=== PATIENT | female | born 1955 | race African-American/Black ===

== ENCOUNTER 2020-05-09 11:53 | Emergency (ER) | payer MEDICARE, SELFPAY ==
--- NOTE | ~2020-05-09 | XR_ITS ---
EXAMINATION: XR knee RT min 4V EXAM DATE: 05/09/2020 12:52 INDICATION: Fall 6 months ago, generalized right knee pain. TECHNIQUE: Right knee frontal, crosstable lateral, orthogonal oblique projections for interpretation . There is no prior study for comparison. FINDINGS: No evidence osteochondral defect or joint body in the right knee joint. There is moderate patellofemoral and medial tibial femoral compartment primary osteoarthritis. There are no acute frac tures or dislocations identified. There is no subcutaneous gas. Trace right knee joint effusion. T here are no radiopaque foreign bodies. IMPRESSION: Moderate right knee osteoarthritis. Reviewed, dictated and finalized at location [facility]
--- NOTE | 2020-05-09 12:11 | ED.GENADULT ---
HPI - General Adult General Chief complaint: Extremity Injury, Lower Stated complaint: Right Leg Pain Time Seen by Provider: 05/09/20 12:12 Source: patient Mode of arrival: ambulatory Limitations: no limitations History of Present Illness HPI narrative: 64-year-old female patient presents to the [facility] with complaints of right knee pain. Patient states that she fell onto her right knee in November 2019. Patient states that she was seen at [facility] had an x-ray at the time of her fall and states that the x-ray was negative for any fractures at the time. Patient states that she has been taking [id number] medication as well as some type of medication that her primary doctor gave her for the pain but the pain is continued and is never gotten better since she has fallen. Patient denies any other imaging since the imaging that she got in November. Patient states she has been trying to use ice and heat to the area. Patient states at times she gets a little bit of tingling and numbness to the feet but it is not consistent. Related Data Home Medications Medication Instructions Recorded Confirmed atorvastatin 05/09/20 carvedilol 05/09/20 furosemide 05/09/20 losartan 05/09/20 omeprazole 05/09/20 potassium chloride [Klor-Con M20] meq PO 05/09/20 rivaroxaban [Xarelto] mg 05/09/20 sertraline mg 05/09/20 trazodone 05/09/20 Allergies Allergy/AdvReac Type Severity Reaction Status Date / Time codeine AdvReac Nausea and Verified 05/09/20 12:21 Vomiting Review of Systems Review of Systems: Narrative: CONSTITUTIONAL: Denies fever, chills, or sweats. EYES: Denies visual changes, redness, or discharge. ENT: Denies rhinorrhea, congestion, sore throat, or otalgia. CARDIOVASCULAR: Denies chest pain, palpitations, or edema. RESPIRATORY: Denies cough or dyspnea. GASTROINTESTINAL: Denies abdominal pain, nausea, vomiting, or diarrhea. GENITOURINARY: Denies dysuria or hematuria. SKIN: Denies rash or itching. MUSCULOSKELETAL: Denies back pain, joint pain, or myalgia. Positive right knee pain since November NEUROLOGIC: Denies headache, numbness, or weakness. PSYCHIATRIC: Denies anxiety or depression. [facility], LAT[facility] Past Medical History Medical History (Updated 05/09/20 @ 13:07 by MANJEET Solorio) Anxiety Atrial fibrillation Congestive heart failure Depression GERD (gastroesophageal reflux disease) Hypercholesterolemia Hypertension Surgical History Surgical History (Updated 05/09/20 @ 13:05 by MANJEET Solorio) H/O gastric bypass Gastric sleeve Comments At the time of my signature I agree with nursing past medical history, surgical, social, and family history. There is no relevant family history pertinent to the presenting complaint. Exam Narrative: Exam Narrative: GENERAL: Well-appearing, well-nourished, and in no acute distress. Patient does appear to be obese. HEAD: Normocephalic, atraumatic. EYES: PERRLA and EOMI. ENT: Nares clear, no rhinorrhea or epistaxis. Mucous membranes moist. NECK: Supple. No lymphadenopathy CHEST: Clear to auscultation. No respiratory distress. HEART: Regular rate and rhythm. No murmur heard. Normal peripheral pulses. ABDOMEN: Soft, nontender, nondistended, normal active bowel sounds. EXTREMITIES: Patient is able to bear weight and ambulate without pain. No surface trauma, STS, or obvious effusion. No overlying erythema or warmth. The R knee is without obvious asymmetry or deformity when compared to the L knee. Patient is able to do deep knee bend with symmetry but does have pain with this motion, no pain with fully extend knee, internal and external rotation. No tendernss to palpation of the patella, no effusion or ballottement. tenderness over the infrapatellar tendon. tenderness over the medial or lateral joint lone ot the medial or lateral tibial plateaus. no tenderness over the proximal fibular head. tenderness to the popliteal fossa. No quadriceps te
[2020-05-09 12:20] VITALS: BP 154/93; PULSE 95; RESP 16; TEMP 36.1; O2SAT 100
== END 2020-05-09 13:10 | disposition home or self-care (01) ==
PROVIDERS: Emergency Provider Nurse Practitioner Family
DX: M25.461 Effusion, right knee (principal); M17.11 Unilateral primary osteoarthritis, right knee; I48.91 Unspecified atrial fibrillation; I11.0 Hypertensive heart disease with heart failure; I50.9 Heart failure, unspecified; E78.00 Pure hypercholesterolemia, unspecified; Z98.84 Bariatric surgery status
CPT/HCPCS: 73564; 99213; G0463

== ENCOUNTER 2020-09-07 14:51 | Emergency (ER) | payer MEDICARE, SELFPAY ==
[2020-09-07 15:05] VITALS: BP 152/72; PULSE 83; RESP 16; TEMP 37; O2SAT 100
--- NOTE | 2020-09-07 15:11 | ED.SKABFB ---
HPI - Skin/Abscess/Foreign Bdy General Chief complaint: Skin/Abscess/Foreign Body Stated complaint: boil on neck Time Seen by Provider: 09/07/20 15:10 Source: patient and RN notes reviewed Mode of arrival: ambulatory Limitations: no limitations History of Present Illness HPI narrative: 65-year-old female presents with concern for a boil on the back of her neck. Reports history of sebaceous cyst in the same area for which she had drained 2 months ago at her surgeon's office. She denies drainage, any redness, warmth around the area. She denies fever, body aches. She also reports chronic cyst in her bilateral axilla MD complaint: abscess/boil Related Data Home Medications Medication Instructions Recorded Confirmed atorvastatin 40 mg PO DAILY 09/07/20 09/07/20 carvedilol 25 mg PO BID 09/07/20 09/07/20 losartan 100 mg PO DAILY 09/07/20 09/07/20 meloxicam 15 mg PO DAILY 09/07/20 09/07/20 omeprazole 40 mg PO DAILY 09/07/20 09/07/20 potassium chloride [Klor-Con 10] 10 meq PO DAILY 09/07/20 09/07/20 rivaroxaban [Xarelto] 20 mg PO DAILY 09/07/20 09/07/20 torsemide 20 mg PO QAM 09/07/20 09/07/20 Allergies Allergy/AdvReac Type Severity Reaction Status Date / Time codeine AdvReac Nausea and Verified 09/07/20 15:18 Vomiting Review of Systems Review of Systems: Narrative: CONSTITUTIONAL: Denies malaise, chills, sweats, or fever. SKIN: Reports a cyst on her upper back MUSCULOSKELETAL: Denies myalgia. NEUROLOGIC: Denies headache. All systems reviewed & are unremarkable except as noted in HPI and below PMFSH Past Medical History Medical History (Updated 09/07/20 @ 15:44 by Katharina Gillette NP) Anxiety Atrial fibrillation Congestive heart failure Depression GERD (gastroesophageal reflux disease) Hypercholesterolemia Hypertension Surgical History Surgical History (Updated 05/09/20 @ 13:05 by MANJEET Solorio) H/O gastric bypass Gastric sleeve Comments At time of signature, agree with nursing past medical, surgical, social and family history. There is no relevant family history pertinent to the presenting complaint Exam Narrative: Exam Narrative: GENERAL: Well-appearing, well-nourished, and in no acute distress. HEAD: Normocephalic, atraumatic. EYES: PERRLA, conjunctivae clear, and EOMI. ENT: Mucous membranes moist. NECK: Supple. No lymphadenopathy CHEST: Clear to auscultation. No respiratory distress. HEART: Regular rate and rhythm. SKIN: Warm, dry. 2 cm raised fluctuant area on the right upper back without surrounding erythema, edema, induration, no drainage or scabs noted NEURO: Alert and oriented x3. PSYCH: Normal mood and affect Course Course Emergency Course: Patient is aware of diagnosis, understands and agrees to treatment plan. Anticipatory guidance given. Patient agrees to follow-up as directed and is aware of reasons to seek care at the emergency department. Portions of this record may have been created with voice recognition software Vital Signs Vital signs: Vital Signs Temperature 98.6 F 09/07/20 15:05 Pulse Rate 83 09/07/20 15:05 Respiratory Rate 16 09/07/20 15:05 Blood Pressure 152/72 H 09/07/20 15:05 Pulse Oximetry 100 09/07/20 15:05 Temperature 98.6 F 09/07/20 15:05 Pulse Rate 83 09/07/20 15:05 Respiratory Rate 16 09/07/20 15:05 Blood Pressure 152/72 H 09/07/20 15:05 Pulse Oximetry 100 09/07/20 15:05 Reviewed. Procedures Abscess I/D back: Date of Incision: 09/07/20 Side (if applicable): right Local Anesthetic: lidocaine 1% Amount of anesthesia used (mL): 3 Technique: incised with #11 blade Amount of fluid expressed (mL): 5 Irrigation: Yes Packing used?: none I&D Results: Pus MDM - Skin/Abscess/Foreign Bdy MDM Narrative Medical decision making narrative: Exam findings show no acute concerns or changes; patient is non-toxic appearing and is in no distress. Patient is appropriat
== END 2020-09-07 15:51 | disposition home or self-care (01) ==
PROVIDERS: Emergency Provider Nurse Practitioner
DX: L72.3 Sebaceous cyst (principal); I48.91 Unspecified atrial fibrillation; K21.9 Gastro-esophageal reflux disease without esophagitis; E78.00 Pure hypercholesterolemia, unspecified; I11.0 Hypertensive heart disease with heart failure; I50.9 Heart failure, unspecified; Z98.84 Bariatric surgery status; Z79.01 Long term (current) use of anticoagulants
CPT/HCPCS: 10060; 99212; G0463